=== PATIENT | male | born 1970 | race Caucasian/White ===

== ENCOUNTER 2018-04-08 16:08 | Emergency (ER) | payer MEDICAID ==
[~2018-04-08] VITALS: Ht 177.8 cm; Wt 141.0 kg
--- NOTE | 2018-04-08 17:04 | NUR ---
DR VINSON TO [facility].
--- NOTE | 2018-04-08 17:06 | NUR ---
PT STATES THAT HE WAS BEING TREATED FOR A UTI BUT STOPPED ATBX AFTER 3 DAYS D/T N/. AWARE.
[2018-04-08 17:09] LABS: MEAN CORPUSCULAR HEMOGLOBIN 30.7 pg (27.5-34.5); MEAN CORPUSCULAR HGB CONC 34.2 g/dL (33.2-36.2); MEAN CORPUSCULAR VOLUME 89.8 fL (81-97); MEAN PLATELET VOLUME 8.8 fL (7.4-10.4); PLATELET COUNT 266 x10^3/uL (130-400); RED BLOOD COUNT 4.74 x10^6/uL (4.38-5.82); RED CELL DISTRIBUTION WIDTH 12.8 % (9.4-14.8)
[2018-04-08 17:20] LABS: ALANINE AMINOTRANSFERASE 52 U/L (12-78); ALBUMIN 3.8 g/dL (3.4-5.0); ANION GAP 7 mmol/L (5-15); CALCIUM 8.9 mg/dL (8.5-10.1); CHLORIDE 104 mmol/L (98-107); CREATININE 0.82 mg/dL (0.7-1.3)
[2018-04-08 17:23] LABS: ALKALINE PHOSPHATASE 79 U/L (45-117); BILIRUBIN,TOTAL 0.4 mg/dL (0.2-1.0); TOTAL PROTEIN 7.5 g/dL (6.4-8.2); TROPONIN I < 0.015 ng/mL (0.000-0.045)
[2018-04-08 17:30] LABS: BASOPHILS # (AUTO) 0.06 x10^3/uL (0-0.1); BASOPHILS % (AUTO) 1 % (0-1); EOSINOPHILS # (AUTO) 0.24 x10^3/uL (0-0.4); EOSINOPHILS % (AUTO) 2 % (1-7); LYMPHOCYTES # (AUTO) 3.62 x10^3/uL (1-3.4); LYMPHOCYTES % (AUTO) 30 % (22-44); MD SCAN; MONOCYTES # (AUTO) 1.56 x10^3/uL (0.2-0.8); MONOCYTES % (AUTO) 13 % (2-9); NEUTROPHILS # (AUTO) 6.68 x10^3/uL (1.8-6.8); NEUTROPHILS % (AUTO) 55 % (42-75)
[2018-04-08 17:51] VITALS: BP 119/61
--- NOTE | 2018-04-08 17:53 | NUR ---
PT D/C-ED. NO CHANGE IN PAIN LEVEL. DECLINED GI COCKTAIL. TO F/U WITH PMD. NO S/S OF DISTRESS NOTED.
[2018-04-08] MEDS ORDERED: MAALOX/HYOSCYAMINE/LIDOCAINE 45 ML BTL PO ONE (18:00)
== END 2018-04-08 18:09 | disposition home or self-care (01) ==
LOC: ED 17:49
DX: R07.89 Other chest pain (principal); Z87.891 Personal history of nicotine dependence
CPT/HCPCS: 36415; 71045; 80053; 84484; 85025; 93005; 99284

== ENCOUNTER 2018-04-29 14:19 | Emergency (ER) | payer MEDICAID ==
[~2018-04-29] VITALS: Ht 177.8 cm; Wt 140.3 kg
--- NOTE | 2018-04-29 14:40 | NUR ---
SUPPLY CHAIN PROCUREMENT MANAGER: PT AMBULATING INDEPENDENTLY TO ED ROOM 25 IN NAD AT THIS TIME
[2018-04-29 14:53] LABS: BASOPHILS # (AUTO) 0.05 x10^3/uL (0-0.1); BASOPHILS % (AUTO) 0 % (0-1); EOSINOPHILS % (AUTO) 3 % (1-7); LYMPHOCYTES # (AUTO) 2.98 x10^3/uL (1-3.4); LYMPHOCYTES % (AUTO) 27 % (22-44); MD NO; MEAN CORPUSCULAR HEMOGLOBIN 30.6 pg (27.5-34.5); MEAN PLATELET VOLUME 8.6 fL (7.4-10.4); MONOCYTES # (AUTO) 0.95 x10^3/uL (0.2-0.8); MONOCYTES % (AUTO) 9 % (2-9); NEUTROPHILS # (AUTO) 6.82 x10^3/uL (1.8-6.8); NEUTROPHILS % (AUTO) 61 % (42-75); PLATELET COUNT 235 x10^3/uL (130-400); RED BLOOD COUNT 4.95 x10^6/uL (4.38-5.82); RED CELL DISTRIBUTION WIDTH 12.7 % (9.4-14.8)
[2018-04-29] MEDS ORDERED: PHENAZOPYRIDINE 200 MG TABLET ONE (14:59)
[2018-04-29] MEDS ORDERED: PHENAZOPYRIDINE 200 MG TABLET PO ONE (15:00)
[2018-04-29 15:01] LABS: ALANINE AMINOTRANSFERASE 29 U/L (12-78); ALBUMIN 3.9 g/dL (3.4-5.0); ANION GAP 9 mmol/L (5-15); CHLORIDE 105 mmol/L (98-107); CREATININE 1.09 mg/dL (0.7-1.3)
[2018-04-29 15:03] LABS: ALKALINE PHOSPHATASE 96 U/L (45-117); BILIRUBIN,TOTAL 0.5 mg/dL (0.2-1.0)
[2018-04-29 15:08] LABS: MICROSCOPIC NOT IND
[2018-04-29 15:16] LABS: CULTURE INDICATED? NO
[2018-04-29] MEDS ORDERED: LISI-170 PO (15:18)
[2018-04-29] MEDS ORDERED: SPIR25TA5 PO (15:18)
[2018-04-29] MEDS ORDERED: CARV25TA12 PO (15:18)
[2018-04-29] MEDS ORDERED: RIVA20TA PO (15:18)
[2018-04-29] MEDS ORDERED: FURO-93 PO (15:18)
--- NOTE | 2018-04-29 15:20 | NUR ---
Pt reports hematuria yesterday, painful urination since, "Its like theres a pin shoved in there", denies any other s/s
--- NOTE | 2018-04-29 15:21 | NUR ---
Chart up for recheck
[2018-04-29] MEDS ORDERED: OMNIPAQUE 350 MG/ML, 150 ML BOTTLE ONE (15:57)
--- NOTE | 2018-04-29 16:36 | NUR ---
Chart up for DC, pt req script for pain meds, will notify MD before DC
[2018-04-29 16:46] VITALS: BP 130/91
== END 2018-04-29 16:48 | disposition home or self-care (01) ==
LOC: ED 16:35
DX: N32.3 Diverticulum of bladder (principal)
CPT/HCPCS: 36415; 74177; 80053; 81003; 83690; 85025; 99284; Q9967

== ENCOUNTER 2018-05-03 18:35 | Emergency (ER) | payer MEDICAID ==
[~2018-05-03] VITALS: Ht 177.8 cm; Wt 140.4 kg
[~2018-05-03 18:35] MED LIST: CARV25TA12 PO; FURO-93 PO; LISI-170 PO; RIVA20TA PO; SPIR25TA5 PO
--- NOTE | 2018-05-03 18:38 | NUR ---
FRENCH CORD BINDER: NIL WHEN CALLED FOR TRIAGE.
--- NOTE | 2018-05-03 19:00 | NUR ---
TASK RN: PT AMBULATED STEADILY TO ROOM WITH RN. BP/SPO2/ECG MONITORING IN PLACE. NSR ON MONITOR. XRAY COMPLETE. LAB IN TO DRAW.
[2018-05-03 19:33] LABS: BASOPHILS % (AUTO) 1 % (0-1); EOSINOPHILS # (AUTO) 0.26 x10^3/uL (0-0.4); EOSINOPHILS % (AUTO) 2 % (1-7); LYMPHOCYTES # (AUTO) 3.21 x10^3/uL (1-3.4); LYMPHOCYTES % (AUTO) 29 % (22-44); MD NO; MEAN CORPUSCULAR HEMOGLOBIN 31.1 pg (27.5-34.5); MEAN CORPUSCULAR HGB CONC 34.4 g/dL (33.2-36.2); MEAN CORPUSCULAR VOLUME 90.5 fL (81-97); MEAN PLATELET VOLUME 8.6 fL (7.4-10.4); MONOCYTES # (AUTO) 1.14 x10^3/uL (0.2-0.8); MONOCYTES % (AUTO) 10 % (2-9); NEUTROPHILS # (AUTO) 6.57 x10^3/uL (1.8-6.8); NEUTROPHILS % (AUTO) 58 % (42-75); PLATELET COUNT 234 x10^3/uL (130-400); RED BLOOD COUNT 4.77 x10^6/uL (4.38-5.82); RED CELL DISTRIBUTION WIDTH 13.1 % (9.4-14.8)
--- NOTE | 2018-05-03 19:37 | NUR ---
Lab unable to draw labs first attempt, pt states this RN had success last week getting an IV on him, per pt request RN started IV x1 attempt for lab draw
--- NOTE | 2018-05-03 20:03 | NUR ---
Pt up to restroom without assistance.
[2018-05-03 20:08] LABS: ALBUMIN 3.7 g/dL (3.4-5.0); ANION GAP 10 mmol/L (5-15); CALCIUM 9.2 mg/dL (8.5-10.1); CHLORIDE 109 mmol/L (98-107); CREATININE 0.97 mg/dL (0.7-1.3)
--- NOTE | 2018-05-03 20:33 | NUR ---
TASK RN: DC EDUCATION PROVIDED, PT DEMONSTRATES UNDERSTANDING. PT AMBULATED STEADILY TO DC WITH RN
[2018-05-03 20:34] VITALS: BP 144/90
== END 2018-05-03 20:36 | disposition home or self-care (01) ==
LOC: ED 19:59
DX: I10 Essential (primary) hypertension (principal); I25.2 Old myocardial infarction
CPT/HCPCS: 36415; 71045; 80048; 82040; 85025; 93005; 99284

== ENCOUNTER → 2018-07-13 | Outpatient (CLI) | payer MEDICARE | END | disposition home or self-care (01) | LOC: CVU 12:22 | PROVIDERS: ATTEND Internal Medicine Cardiovascular Disease | DX: I07.1 Rheumatic tricuspid insufficiency (principal); I10 Essential (primary) hypertension; I25.2 Old myocardial infarction | CPT/HCPCS: 93306 ==

== ENCOUNTER 2018-07-20 13:30 | Emergency (ER) | payer MEDICARE ==
[~2018-07-20] VITALS: Ht 177.8 cm; Wt 139.2 kg
[2018-07-20 13:33] VITALS: BP 121/80
--- NOTE | 2018-07-20 14:06 | NUR ---
DR. MOSS AT BEDSIDE PERFORMING RECTAL EXAM.
[2018-07-20 14:13] LABS: MICROSCOPIC NOT IND
[2018-07-20 14:15] LABS: CULTURE INDICATED? NO
[2018-07-20 14:53] LABS: BASOPHILS # (AUTO) 0.09 x10^3/uL (0-0.1); BASOPHILS % (AUTO) 1 % (0-1); EOSINOPHILS # (AUTO) 0.23 x10^3/uL (0-0.4); EOSINOPHILS % (AUTO) 2 % (1-7); LYMPHOCYTES # (AUTO) 2.44 x10^3/uL (1-3.4); LYMPHOCYTES % (AUTO) 21 % (22-44); MD NO; MEAN CORPUSCULAR HEMOGLOBIN 31.6 pg (27.5-34.5); MEAN CORPUSCULAR HGB CONC 34.8 g/dL (33.2-36.2); MEAN CORPUSCULAR VOLUME 90.8 fL (81-97); MEAN PLATELET VOLUME 8.6 fL (7.4-10.4); MONOCYTES # (AUTO) 1.24 x10^3/uL (0.2-0.8); MONOCYTES % (AUTO) 11 % (2-9); NEUTROPHILS # (AUTO) 7.58 x10^3/uL (1.8-6.8); NEUTROPHILS % (AUTO) 66 % (42-75); PLATELET COUNT 223 x10^3/uL (130-400); RED CELL DISTRIBUTION WIDTH 12.5 % (9.4-14.8)
[2018-07-20 15:04] LABS: ALBUMIN 3.8 g/dL (3.4-5.0); ANION GAP 7 mmol/L (5-15); CALCIUM 8.8 mg/dL (8.5-10.1); CHLORIDE 108 mmol/L (98-107)
[2018-07-20 15:06] LABS: CREATININE 0.98 mg/dL (0.7-1.3)
--- NOTE | 2018-07-20 16:09 | NUR ---
in room for recheck. plan is to be d/c with abx and urology consult. pt agrees with poc.
== END 2018-07-20 16:32 | disposition home or self-care (01) ==
LOC: ED 15:30
DX: N41.0 Acute prostatitis (principal); Z90.49 Acquired absence of other specified parts of digestive tract; I10 Essential (primary) hypertension
CPT/HCPCS: 36415; 80048; 81003; 82040; 85025; 99283

== ENCOUNTER 2018-08-02 14:22 | Emergency (ER) | payer MEDICARE ==
--- NOTE | 2018-08-02 14:42 | NUR ---
NO ANSWER FROM TRIAGE
--- NOTE | 2018-08-02 14:49 | NUR ---
NO ANSWER FROM TRIAGE
== END 2018-08-02 15:23 | disposition left against medical advice (07) ==
LOC: ED 15:17
DX: R42 Dizziness and giddiness (principal); Z53.21 Procedure and treatment not carried out due to patient leaving prior to being seen by health care provider

== ENCOUNTER 2018-12-06 09:07 | Emergency (ER) | payer MEDICARE ==
[~2018-12-06] VITALS: Ht 172.7 cm; Wt 137.0 kg
[2018-12-06 09:19] VITALS: BP 151/79
[2018-12-06] MEDS ORDERED: KETOROLAC 30 MG/1 ML IM ONE (09:30)
[2018-12-06] MEDS ORDERED: METHOCARBAMOL 750 MG TABLET PO ONE (09:30)
[2018-12-06] MEDS ORDERED: HYDROcodone/APAP 5/325 TABLET PO ONE (09:30)
[2018-12-06] MEDS ORDERED: ONDANSETRON ODT 4 MG PO ONE (09:30)
--- NOTE | 2018-12-06 09:35 | NUR ---
PT HERE FOR RIGHT HIP/THIGH PAIN, STATES BURNING IN NATURE. PT ALSO STATES PAINFUL URINATION, DYSURIA, AND "BRANDIN ON RIGHT TESTICLE."
[2018-12-06] MEDS ORDERED: METHOCARBAMOL 750 MG TABLET ONE (10:04)
[2018-12-06] MEDS ORDERED: ONDANSETRON ODT 4 MG ONE (10:04)
[2018-12-06] MEDS ORDERED: HYDROcodone/APAP 5/325 TABLET ONE (10:04)
[2018-12-06] MEDS ORDERED: KETOROLAC 30 MG/1 ML ONE (10:04)
--- NOTE | 2018-12-06 10:06 | NUR ---
ULTRASOUND DEALY-MEDS/BATHROOM.
[2018-12-06 10:27] LABS: BASOPHILS # (AUTO) 0.08 x10^3/uL (0-0.1); BASOPHILS % (AUTO) 1 % (0-1); EOSINOPHILS # (AUTO) 0.36 x10^3/uL (0-0.4); EOSINOPHILS % (AUTO) 4 % (1-7); LYMPHOCYTES # (AUTO) 2.99 x10^3/uL (1-3.4); LYMPHOCYTES % (AUTO) 35 % (22-44); MD NO; MEAN CORPUSCULAR HEMOGLOBIN 31.8 pg (27.5-34.5); MEAN CORPUSCULAR HGB CONC 34.1 g/dL (33.2-36.2); MEAN CORPUSCULAR VOLUME 93.1 fL (81-97); MONOCYTES # (AUTO) 1.08 x10^3/uL (0.2-0.8); MONOCYTES % (AUTO) 13 % (2-9); NEUTROPHILS # (AUTO) 4.13 x10^3/uL (1.8-6.8); NEUTROPHILS % (AUTO) 48 % (42-75); PLATELET COUNT 249 x10^3/uL (130-400); RED BLOOD COUNT 4.73 x10^6/uL (4.38-5.82); RED CELL DISTRIBUTION WIDTH 12.7 % (9.4-14.8)
[2018-12-06 10:27] LABS: MICROSCOPIC NOT IND
[2018-12-06 10:30] LABS: CULTURE INDICATED? NO
[2018-12-06 10:34] LABS: ALANINE AMINOTRANSFERASE 30 U/L (12-78); ANION GAP 4 mmol/L (5-15); CALCIUM 9.6 mg/dL (8.5-10.1); CHLORIDE 106 mmol/L (98-107); CREATININE 0.85 mg/dL (0.7-1.3)
[2018-12-06 10:36] LABS: ALKALINE PHOSPHATASE 84 U/L (45-117); BILIRUBIN,TOTAL 0.4 mg/dL (0.2-1.0); TOTAL PROTEIN 7.8 g/dL (6.4-8.2)
--- NOTE | 2018-12-06 11:32 | NUR ---
Patient/Caregiver given discharge instructions and they have confirmed that they understand the instructions. Patient ambulatory with steady gait.
== END 2018-12-06 11:34 | disposition home or self-care (01) ==
LOC: ED 11:32
DX: M54.41 Lumbago with sciatica, right side (principal); I10 Essential (primary) hypertension; I25.2 Old myocardial infarction; Z86.718 Personal history of other venous thrombosis and embolism; Z87.891 Personal history of nicotine dependence; Z79.899 Other long term (current) drug therapy; Z90.49 Acquired absence of other specified parts of digestive tract
CPT/HCPCS: 36415; 72110; 73502; 76870; 80053; 81003; 85025; 87491; 87591; 96372; 99284; J1885; Q0162

== ENCOUNTER → 2019-03-28 | Outpatient (CLI) | payer MEDICARE ==
[~2019-03-28] MED LIST changes: +CEFD300C37 PO; +METR500T PO; +OMNIPAQUE 350 MG/ML, 150 ML BOTTLE ONE; +ONDA4TAB13 PO; +TRAM50TA2 PO
== END | disposition home or self-care (01) ==
LOC: CFH 13:28
PROVIDERS: ATTEND Urology
DX: N32.3 Diverticulum of bladder (principal); R31.0 Gross hematuria
CPT/HCPCS: 74178; 82565; Q9967

== ENCOUNTER 2019-04-13 17:27 | Emergency (ER) | payer MEDICARE ==
[~2019-04-13] VITALS: Ht 177.8 cm; Wt 139.1 kg
[~2019-04-13 17:27] MED LIST changes: -OMNIPAQUE 350 MG/ML, 150 ML BOTTLE ONE
[2019-04-13 18:47] LABS: MICROSCOPIC INDICATED
[2019-04-13 18:48] LABS: CULTURE INDICATED? YES
--- NOTE | 2019-04-13 19:58 | NUR ---
PT CAME IN CO OF BLOODY URINE AND THAT IT IS PAINFUL WHEN HE URINATES. ALSO EXP FLANK PAIN. URINE SAMPLE SENT.
--- NOTE | 2019-04-13 19:59 | NUR ---
PT ALSO REPORTS BLADDER PAIN
--- NOTE | 2019-04-13 20:13 | NUR ---
PT IN HOSPITAL BED. BLANKET PROVIDED
[2019-04-13] MEDS ORDERED: HYDROcodone/APAP 5/325 TABLET PO ONE ×2 (20:30→22:00)
[2019-04-13] MEDS ORDERED: LIDOCAINE 2%,20 ML JEL.PF.APP MM ONE ×2 (20:30→20:39)
[2019-04-13] MEDS ORDERED: HYDROcodone/APAP 5/325 TABLET ONE ×2 (20:31→22:13)
[2019-04-13 21:31] LABS: BASOPHILS # (AUTO) 0.13 x10^3/uL (0-0.1); BASOPHILS % (AUTO) 1 % (0-1); EOSINOPHILS # (AUTO) 0.25 x10^3/uL (0-0.4); EOSINOPHILS % (AUTO) 2 % (1-7); LYMPHOCYTES # (AUTO) 3.87 x10^3/uL (1-3.4); LYMPHOCYTES % (AUTO) 32 % (22-44); MD NO; MEAN CORPUSCULAR HGB CONC 33.8 g/dL (33.2-36.2); MEAN CORPUSCULAR VOLUME 91.7 fL (81-97); MEAN PLATELET VOLUME 8.6 fL (7.4-10.4); MONOCYTES # (AUTO) 1.43 x10^3/uL (0.2-0.8); MONOCYTES % (AUTO) 12 % (2-9); NEUTROPHILS # (AUTO) 6.32 x10^3/uL (1.8-6.8); NEUTROPHILS % (AUTO) 53 % (42-75); PLATELET COUNT 229 x10^3/uL (130-400); RED BLOOD COUNT 4.51 x10^6/uL (4.38-5.82); RED CELL DISTRIBUTION WIDTH 12.7 % (9.4-14.8)
[2019-04-13 21:35] LABS: ANION GAP 7 mmol/L (5-15); CHLORIDE 104 mmol/L (98-107); CREATININE 1.04 mg/dL (0.7-1.3)
--- NOTE | 2019-04-13 21:58 | NUR ---
Received report from RASHEEDA Fairbanks. This RN to assume care.
[2019-04-13] MEDS ORDERED: KETOROLAC 30 MG/1 ML IM ONE (22:00)
--- NOTE | 2019-04-13 22:00 | NUR ---
PRECEPTOR NOTE: DR. MCCAIN AT BEDSIDE FOR RECHECK. PT IRRIGATED WITH CBI FOR ONE LITER PER DR. MCCAIN AND DRAINAGE REMAINED CLEAR WHEN 3-WAY DURON WAS FIRST STARTED. PT REPORTS OF CONTINUED PAIN IN LLQ OF ABDOMEN AND DR. MCCAIN AWARE. US WITH PAIN MEDS TO BE GIVEN.
--- NOTE | 2019-04-13 22:09 | NUR ---
REPORT GIVEN TO RASHEEDA BARNES.
[2019-04-13] MEDS ORDERED: KETOROLAC 60 MG/2 ML ONE (22:12)
[2019-04-14 00:03] VITALS: BP 123/76
== END 2019-04-14 00:07 | disposition home or self-care (01) ==
LOC: ED 21:35
DX: R31.0 Gross hematuria (principal); I25.2 Old myocardial infarction; I11.0 Hypertensive heart disease with heart failure; I50.9 Heart failure, unspecified; I25.10 Atherosclerotic heart disease of native coronary artery without angina pectoris; Z90.49 Acquired absence of other specified parts of digestive tract
CPT/HCPCS: 36415; 51700; 76770; 80048; 81001; 85025; 87086; 96372; 99284; J1885

== ENCOUNTER → 2019-05-04 | Outpatient (CLI) | payer MEDICARE | END | disposition home or self-care (01) | LOC: CVU 09:33 | PROVIDERS: ATTEND Internal Medicine Cardiovascular Disease | DX: I08.2 Rheumatic disorders of both aortic and tricuspid valves (principal); I42.9 Cardiomyopathy, unspecified; I10 Essential (primary) hypertension; Z87.891 Personal history of nicotine dependence | CPT/HCPCS: 93306; 93356 ==

== ENCOUNTER 2019-08-23 07:35 | Inpatient (IN) | payer MEDICARE ==
[~2019-08-23] VITALS: Ht 177.8 cm; Wt 135.0 kg
--- NOTE | 2019-08-23 07:55 | NUR ---
FIRST CONTACT WITH PT. PT C/O LEFT SIDED CP/SOB DESCRIBED SHARP/DULL RADIATING INTO L ARMPIT AND UP INTO JAW WITH ASSOCIATED GRAHAM/NAUSEA, SINCE YESTERDAY @1400 WHEN WORKING IN YARD. PAIN LEVEL IS 2/10 AT THIS TIME. PT'S AOX4. RESPS EVEN AND UNLABORED. ALL MONITORS IN PLACE. NSR RATE 70'S ON SLEEPING ROOM CLEANER AT THIS TIME. CALL LIGHT WITHIN REACH.
--- NOTE | 2019-08-23 08:26 | NUR ---
PT AMB TO BR WITH STEADY GAIT.
--- NOTE | 2019-08-23 08:47 | NUR ---
PT BACK TO ROOM FROM WITH STEADY GAIT. PT RESTING IN [facility]. PT'S AOX4. RESPS EVEN AND UNLABORED.
[2019-08-23] MEDS ORDERED: SODIUM CHLORIDE FLUSH 10ML SYR IVF ONE (09:00)
[2019-08-23] MEDS ORDERED: ASPIRIN 81 MG TABLET CHEW PO ONE (09:00)
[2019-08-23] MEDS ORDERED: MORPHINE SULFATE 4 MG/ML, 1ML IVPush PRN (09:00)
[2019-08-23] MEDS ORDERED: ONDANSETRON 2MG/ML, 2ML IVPush ONE (09:00)
[2019-08-23] MEDS ORDERED: ONDANSETRON 2MG/ML, 2ML ONE (09:03)
[2019-08-23] MEDS ORDERED: ASPIRIN 81 MG TABLET CHEW ONE (09:03)
[2019-08-23] MEDS ORDERED: MORPHINE SULFATE 4 MG/ML, 1ML ONE (09:03)
--- NOTE | 2019-08-23 09:11 | NUR ---
PT MEDICATED PER EMAR. THIS RN ATTEMPTED PIV X 2 WITHOUT SUCCESS.
--- NOTE | 2019-08-23 09:18 | NUR ---
DANE VANESSA AT BEDSIDE TO START PIV AT THIS TIME.
[2019-08-23 09:21] LABS: BASOPHILS # (AUTO) 0.07 x10^3/uL (0-0.1); BASOPHILS % (AUTO) 1 % (0-1); EOSINOPHILS % (AUTO) 4 % (1-7); LYMPHOCYTES % (AUTO) 25 % (22-44); MD NO; MEAN CORPUSCULAR HEMOGLOBIN 30.9 pg (27.5-34.5); MEAN CORPUSCULAR HGB CONC 33.7 g/dL (33.2-36.2); MEAN CORPUSCULAR VOLUME 91.7 fL (81-97); MEAN PLATELET VOLUME 8.5 fL (7.4-10.4); MONOCYTES # (AUTO) 1.24 x10^3/uL (0.2-0.8); MONOCYTES % (AUTO) 11 % (2-9); NEUTROPHILS # (AUTO) 6.93 x10^3/uL (1.8-6.8); NEUTROPHILS % (AUTO) 60 % (42-75); PLATELET COUNT 244 x10^3/uL (130-400); RED BLOOD COUNT 4.73 x10^6/uL (4.38-5.82); RED CELL DISTRIBUTION WIDTH 12.9 % (9.4-14.8)
--- NOTE | 2019-08-23 09:44 | NUR ---
JALEN VANESSA AT BEDSIDE TO STAART PIV BY USING US AT THIS TIME.
--- NOTE | 2019-08-23 09:57 | NUR ---
MIO VANESSA AT BEDSIDE TO STAART PIV BY USING US AT THIS TIME.
--- NOTE | 2019-08-23 10:27 | NUR ---
PT RESTING IN [facility]. PT'S AOX4. RESPS EVEN AND UNLABORED. ALL MONITORS IN PLACE. CALL LIGHT WITHIN REACH.
[2019-08-23 10:44] LABS: ANION GAP 7 mmol/L (5-15); CALCIUM 9.4 mg/dL (8.5-10.1); CHLORIDE 104 mmol/L (98-107)
--- NOTE | 2019-08-23 10:44 | NUR ---
task RN note: PIV established to right upper arm, locked. primary RN Nuris notified. pt tolerated well.
--- NOTE | 2019-08-23 10:46 | NUR ---
PT MEDICATED PER EMAR. PT TOLERATED WELL. PT'S AOX4. RESPS EVEN AND UNLABORED.
[2019-08-23 10:53] LABS: CREATININE 0.94 mg/dL (0.7-1.3)
[2019-08-23 10:54] LABS: TROPONIN I < 0.015 ng/mL (0.000-0.045)
[2019-08-23] MEDS ORDERED: ZOLPIDEM 5MG TABLET PO PRN (11:30)
[2019-08-23] MEDS ORDERED: BISACODYL 10 MG SUPP PR PRN (11:30)
[2019-08-23] MEDS ORDERED: hydrALAzine 20 MG/ML, 1ML IVPush PRN (11:30)
[2019-08-23] MEDS ORDERED: ONDANSETRON 2MG/ML, 2ML IVPush PRN (11:30)
[2019-08-23] MEDS ORDERED: NITROGLYCERIN 0.4 MG BOTTLE (25 TABS) SL PRN (11:30)
[2019-08-23] MEDS ORDERED: LABETALOL 5MG/ML, 20ML IVPush PRN (11:30)
[2019-08-23] MEDS ORDERED: POLYETHYLENE GLYCOL 17 GM PACKET PO PRN (11:30)
[2019-08-23] MEDS ORDERED: ACETAMINOPHEN 325 MG TABLET PO PRN (11:30)
[2019-08-23] MEDS ORDERED: CARVEDILOL 25 MG TABLET PO PRN (11:30)
--- NOTE | 2019-08-23 11:30 | NUR ---
pt amb to br and back to room with steady gait.
[2019-08-23] MEDS ORDERED: RIVAROXABAN 20 MG TABLET ONE (11:38)
[2019-08-23] MEDS: RIVAROXABAN 20 MG TABLET PO SCH (11:40)
--- NOTE | 2019-08-23 11:41 | NUR ---
pT MEDICATED PER EMAR, PT HAS NO NEW NEEDS AT THIS TIME.
--- NOTE | 2019-08-23 12:05 | NUR ---
Pt assisted to the restroom.
[2019-08-23 12:13] LABS: TROPONIN I < 0.015 ng/mL (0.000-0.045)
[2019-08-23] MEDS ORDERED: LIDODERM 5% PATCH TD PRN (12:30)
[2019-08-23 12:31] LABS: FREE T4 (FREE THYROXINE) 1.13 ng/dL (0.76-1.46)
--- NOTE | 2019-08-23 12:40 | NUR ---
DIET TRAY PROVIDED AT THIS TIME.
--- NOTE | 2019-08-23 13:09 | NUR ---
THIS RN ATTEMPTED TO CALL FOR REPORT X 1. NO ANSWER.
--- NOTE | 2019-08-23 13:23 | NUR ---
THIS RN ATTEMPTED TO CALL FOR REPORT X 2. NO ANSWER.
--- NOTE | 2019-08-23 13:55 | NUR ---
REPORT GIVEN TO REJI VANESSA. ALL QUESTIONS ANSWERED.
[2019-08-23 14:17] VITALS: BP 119/77
[2019-08-23 17:33] LABS: TROPONIN I < 0.015 ng/mL (0.000-0.045)
[2019-08-23 20:24] VITALS: BP 113/73
[2019-08-23] MEDS: FAMOTIDINE 20 MG TABLET PO SCH (20:26)
[2019-08-23] MEDS: LIDODERM REMOVE PATCH NOTE XX SCH (21:00)
[2019-08-24 02:28] VITALS: BP 119/75
[2019-08-24 06:07] LABS: BASOPHILS # (AUTO) 0.06 x10^3/uL (0-0.1); BASOPHILS % (AUTO) 1 % (0-1); EOSINOPHILS # (AUTO) 0.36 x10^3/uL (0-0.4); EOSINOPHILS % (AUTO) 4 % (1-7); LYMPHOCYTES # (AUTO) 2.57 x10^3/uL (1-3.4); LYMPHOCYTES % (AUTO) 25 % (22-44); MD NO; MEAN CORPUSCULAR HGB CONC 34.3 g/dL (33.2-36.2); MEAN CORPUSCULAR VOLUME 90.5 fL (81-97); MEAN PLATELET VOLUME 8.4 fL (7.4-10.4); MONOCYTES # (AUTO) 1.17 x10^3/uL (0.2-0.8); MONOCYTES % (AUTO) 11 % (2-9); NEUTROPHILS % (AUTO) 59 % (42-75); PLATELET COUNT 242 x10^3/uL (130-400); RED BLOOD COUNT 4.69 x10^6/uL (4.38-5.82); RED CELL DISTRIBUTION WIDTH 12.9 % (9.4-14.8)
[2019-08-24] MEDS: RIVAROXABAN 20 MG TABLET PO SCH (06:07)
[2019-08-24] MEDS: ASPIRIN 325 MG TABLET EC PO SCH (06:07)
[2019-08-24 06:20] LABS: CHLORIDE 106 mmol/L (98-107)
[2019-08-24 06:25] LABS: ANION GAP 7 mmol/L (5-15); CALCIUM 9.1 mg/dL (8.5-10.1); CHOL/HDL RATIO 3.8; CHOLESTEROL, TOTAL 148 mg/dL (140-239); HDL CHOL % 26 % (26-37); HDL CHOLESTEROL (DIRECT) 39 mg/dL (40-60); LDL CHOLESTEROL,CALCULATED 87 mg/dL (54-169); LDL/HDL RATIO 2.2 (0.5-3.0); TRIGLYCERIDES 112 mg/dL (50-200); VLDL CHOLESTEROL 22 mg/dL (0-25)
[2019-08-24 07:48] VITALS: BP 119/79
[2019-08-24] MEDS ORDERED: REGADENOSON 0.4 MG/5 ML SYRINGE ONE (09:16)
[2019-08-24] MEDS: FAMOTIDINE 20 MG TABLET PO SCH ×2 (11:34→21:40)
[2019-08-24] MEDS: LISINOPRIL 20 MG TABLET PO SCH (11:35)
[2019-08-24] MEDS: FUROSEMIDE 20 MG TABLET PO SCH (11:35)
[2019-08-24] MEDS: SPIRONOLACTONE 25 MG TABLET PO SCH (11:35)
[2019-08-24] MEDS ORDERED: ASPI-650 PO (14:11)
[2019-08-24] MEDS ORDERED: ATOR20TA37 PO (14:11)
[2019-08-24] MEDS ORDERED: RIVA20TA PO (14:11)
[2019-08-24 14:30] VITALS: BP 107/71
[2019-08-24 19:32] VITALS: BP 122/78
[2019-08-24] MEDS: LIDODERM REMOVE PATCH NOTE XX SCH (21:00)
[2019-08-25 01:31] VITALS: BP 123/84
[2019-08-25] MEDS: ASPIRIN 325 MG TABLET EC PO SCH (05:43)
[2019-08-25] MEDS: RIVAROXABAN 20 MG TABLET PO SCH (05:43)
[2019-08-25 06:41] VITALS: BP 132/87
[2019-08-25] MEDS: LISINOPRIL 20 MG TABLET PO SCH (07:30)
[2019-08-25] MEDS: FAMOTIDINE 20 MG TABLET PO SCH (07:30)
[2019-08-25] MEDS: SPIRONOLACTONE 25 MG TABLET PO SCH (07:31)
[2019-08-25] MEDS: FUROSEMIDE 20 MG TABLET PO SCH (07:31)
[2019-08-25 12:39] VITALS: BP 131/86
== END 2019-08-25 16:06 | disposition home or self-care (01) | DRG 313 ==
LOC: ED 08:20 → EDIP 11:02 → SUATTDRO 11:03 → 5SO 14:25
PROVIDERS: ADMIT Hospitalist; ATTEND Hospitalist
DX: R07.89 Other chest pain (principal); D68.59 Other primary thrombophilia; Z68.41 Body mass index [BMI] 40.0-44.9, adult; I25.10 Atherosclerotic heart disease of native coronary artery without angina pectoris; E66.9 Obesity, unspecified; I11.0 Hypertensive heart disease with heart failure; G62.9 Polyneuropathy, unspecified; I50.9 Heart failure, unspecified; Z82.49 Family history of ischemic heart disease and other diseases of the circulatory system; I25.2 Old myocardial infarction; Z83.3 Family history of diabetes mellitus; Z86.711 Personal history of pulmonary embolism; Z90.49 Acquired absence of other specified parts of digestive tract; Z86.718 Personal history of other venous thrombosis and embolism
CPT/HCPCS: 36415; 71045; 78452; 80048; 80061; 82040; 83036; 84439; 84443; 84484; 85025; 93005; 93017; 96374; 96375; 99285; G0378; J2405; J2785; A9502; J2270

== ENCOUNTER 2020-08-16 20:57 | Emergency (ER) | payer MEDICARE ==
[~2020-08-16] VITALS: Ht 177.8 cm; Wt 136.0 kg
[~2020-08-16 20:57] MED LIST changes: +ASPI325T20 PO; +ATOR20TA37 PO
[2020-08-16] MEDS ORDERED: ONDANSETRON ODT 4 MG ONE (21:27)
[2020-08-16] MEDS ORDERED: SODIUM CHLORIDE FLUSH 10ML SYR IVF ONE (21:30)
[2020-08-16] MEDS ORDERED: ASPIRIN 81 MG TABLET CHEW PO ONE (21:30)
[2020-08-16] MEDS ORDERED: MORPHINE SULFATE 4 MG/ML, 1ML IVPush PRN (21:30)
[2020-08-16] MEDS ORDERED: ONDANSETRON 2MG/ML, 2ML IVPush ONE (21:30)
[2020-08-16] MEDS ORDERED: ASPIRIN 81 MG TABLET CHEW ONE (21:41)
[2020-08-16 21:50] LABS: BASOPHILS % (AUTO) 1 % (0-1); EOSINOPHILS % (AUTO) 3 % (1-7); LYMPHOCYTES % (AUTO) 19 % (22-44); MEAN CORPUSCULAR HEMOGLOBIN 31.7 pg (27.5-34.5); MEAN CORPUSCULAR HGB CONC 35.2 g/dL (33.2-36.2); MEAN PLATELET VOLUME 8.6 fL (7.4-10.4); MONOCYTES % (AUTO) 11 % (2-9); NEUTROPHILS % (AUTO) 66 % (42-75); PLATELET COUNT 225 x10^3/uL (130-400); RED BLOOD COUNT 4.23 x10^6/uL (4.38-5.82); RED CELL DISTRIBUTION WIDTH 12.5 % (9.4-14.8)
[2020-08-16 21:57] LABS: MD NO
[2020-08-16 22:02] LABS: ALANINE AMINOTRANSFERASE 25 U/L (12-78); ALBUMIN 3.8 g/dL (3.4-5.0); ANION GAP 6 mmol/L (5-15); CALCIUM 8.8 mg/dL (8.5-10.1); CHLORIDE 102 mmol/L (98-107); CREATININE 0.87 mg/dL (0.7-1.3)
[2020-08-16 22:06] LABS: ALKALINE PHOSPHATASE 86 U/L (45-117); BILIRUBIN,TOTAL 0.3 mg/dL (0.2-1.0); TOTAL PROTEIN 7.3 g/dL (6.4-8.2); TROPONIN I < 0.015 ng/mL (0.000-0.045)
[2020-08-17 00:01] LABS: AMPHETAMINE SCREEN, URINE Negative (Negative); BARBITURATE SCREEN, URINE Negative (Negative); BENZODIAZEPINE SCREEN, URINE Negative (Negative); CANNABINOID SCREEN, URINE Negative (Negative); COCAINE SCREEN, URINE Negative (Negative); METHADONE SCREEN, URINE Negative (Negative); OPIATE SCREEN, URINE Positive (Negative)
[2020-08-17 00:19] VITALS: BP 104/51
== END 2020-08-17 01:04 | disposition left against medical advice (07) ==
LOC: ED 21:27
DX: R07.2 Precordial pain (principal); R06.02 Shortness of breath; R11.0 Nausea; R94.31 Abnormal electrocardiogram [ECG] [EKG]; I25.2 Old myocardial infarction; I25.10 Atherosclerotic heart disease of native coronary artery without angina pectoris; I11.0 Hypertensive heart disease with heart failure; I50.9 Heart failure, unspecified; Z86.39 Personal history of other endocrine, nutritional and metabolic disease; Z86.718 Personal history of other venous thrombosis and embolism; Z90.89 Acquired absence of other organs; Z87.891 Personal history of nicotine dependence
CPT/HCPCS: 36415; 71045; 80053; 80307; 83735; 83880; 84484; 85025; 85379; 93005; 96374; 99285; J2405